=== PATIENT | female | born 1980 | race Caucasian/White ===

== ENCOUNTER 2019-07-22 09:34 | Emergency (ER) | payer SELFPAY ==
[~2019-07-22] VITALS: Ht 154.9 cm; Wt 77.3 kg
[2019-07-22 10:08] LABS: BASO % 0.4 % (0.0-2.0); EOS % 0.2 % (0-4.0); GRAN # 3.5 (1.4-6.5); GRAN % 76.3 % (42.2-75.2); HEMATOCRIT 38.1 % (37.0-47.0); HEMOGLOBIN 12.2 g/dl (12.5-16.0); LYMPH # 0.5 (1.2-3.4); LYMPH % 11.9 % (20.0-51.0); MEAN CELL VOLUME 86 fl (80.0-100.0); MEAN CORPUSCULAR HEMOGLOBIN 28 pg (27.0-31.0); MEAN CORPUSCULAR HGB CONC 32 g/dl (33.0-37.0); MEAN PLATELET VOLUME 11.3 fl (7.4-10.4); MONO # 0.5 (0.1-0.6); PLATELET COUNT 229 K/mm3 (130-400); RED BLOOD COUNT 4.44 M/mm3 (4.10-5.30); REDCELL DISTRIBUTION WIDTH-CV 13.2 % (11.5-14.5)
[2019-07-22 10:16] LABS: ALBUMIN 4.2 gm/dL (3.5-5.0); BILIRUBIN,TOTAL 0.4 mg/dL (0.0-1.0); CALCIUM 8.9 mg/dL (8.4-10.2); CREATININE, serum 0.75 (0.52-1.25); MAGNESIUM 1.8 mg/dL (1.6-2.3); PHOSPHOROUS 2.5 mg/dL (2.5-4.5); POTASSIUM 3.8 mmol/L (3.4-5.0); TOTAL PROTEIN 7.1 gm/dL (6.4-8.2)
[2019-07-22] MEDS ORDERED: TAMIFLU 75MG75 MG PO (12:48)
[2019-07-22 14:30] VITALS: BP 94/68; PULSE 78; TEMP 98
== END 2019-07-22 14:30 | disposition home or self-care (01) ==
LOC: COL.ER 09:34
PROVIDERS: Emergency Medicine
DX: J11.1 Influenza due to unidentified influenza virus with other respiratory manifestations (principal); Z88.0 Allergy status to penicillin
CPT/HCPCS: J7030